=== PATIENT | male | born 1930 | race Hispanic/Latino ===

== ENCOUNTER 2018-09-03 04:42 | Emergency (ER) | payer MEDICARE ==
--- NOTE | 2018-09-03 08:28 | RAD ---
RIGHT HIP 2 VIEWS: Date: 09/03/18 HISTORY: Injury. COMPARISON: None. 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 Large subcortical cyst. Moderate vascular calcifications. No acute displaced fracture or malalignment. 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 POS: [facility]
--- NOTE | 2018-09-03 08:42 | RAD ---
RIGHT KNEE 2 VIEWS: Date: 09/03/18 HISTORY: Pain. COMPARISON: None. FINDINGS: Exam limited due to flexion of the knee. Within these limitations, no acute displaced fracture or mal alignment is appreciated. Extensive vascular calcifications. No significant joint effusion. IMPRESSION: Within limits of this exam, no acute abnormality. POS: [facility]
--- NOTE | 2018-09-03 09:24 | RAD ---
LEFT ELBOW 4 VIEWS: Date: 09/03/18 HISTORY: Pain. COMPARISON: None. FINDINGS: The patient was uncooperative and only 2 views were obtained. Images are labeled as a right elb ow. No acute displaced fracture or malalignment is appreciated. IMPRESSION: No acute displaced fracture or malalignment on this limited examination, which is labeled as a rig ht elbow, although ordered as a left elbow. Recommend repeat examination. POS: [facility]
== END 2018-09-03 09:30 | disposition home or self-care (01) ==
LOC: MADERS 04:42
DX: S51.012A Laceration without foreign body of left elbow, initial encounter (principal); F32.9 Major depressive disorder, single episode, unspecified; G47.00 Insomnia, unspecified; E78.5 Hyperlipidemia, unspecified; I10 Essential (primary) hypertension; F03.90 Unspecified dementia, unspecified severity, without behavioral disturbance, psychotic disturbance, mood disturbance, and anxiety; Z79.899 Other long term (current) drug therapy; W05.0XXA Fall from non-moving wheelchair, initial encounter